=== PATIENT | male | born 1995 | race African-American/Black ===

== ENCOUNTER 2021-07-31 01:41 | Emergency (ER) | payer OTHER ==
[2021-07-31 02:20] VITALS: RESP 18
[2021-07-31] MEDS ORDERED: cefTRIAXone 250 MG VIAL IM STA (02:54)
[2021-07-31] MEDS ORDERED: AZITHROMYCIN 500 MG TAB PO STA (02:54)
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
[2021-07-31 03:50] LABS: Appearance,Urine Clear (Clear); Bilirubin,Urine Negative (Negative); Blood,Urine Negative (Negative); Color,Urine Yellow; Glucose,Urine (UA) Negative (Negative); Ketones,Urine Negative (Negative); Leukocyte Esterase,Urine Negative (Negative); Nitrite,Urine Negative (Negative); Protein,Urine Negative (Negative); Specific Gravity,Urine 1.023 (1.001-1.035); Urobilinogen,Urine <2.0 mg/dL (<2.0)
[2021-07-31 04:53] VITALS: BP 115/73; PULSE 79; TEMP 98
[2021-08-03 13:07] LABS: C. trachomatis,PCR Negative (Neg,Equiv); Chlamydia trachomatis Source Urine; N. gonorrhoeae,PCR Negative (Neg,Equiv); Neisseria Source Urine
== END 2021-07-31 04:21 | disposition home or self-care (01) ==
LOC: EC 01:41
DX: N34.2 Other urethritis (principal); J45.909 Unspecified asthma, uncomplicated; F41.9 Anxiety disorder, unspecified; F43.12 Post-traumatic stress disorder, chronic; F17.200 Nicotine dependence, unspecified, uncomplicated; F12.90 Cannabis use, unspecified, uncomplicated
CPT/HCPCS: 99283; 96372; 81003; 87491; 87591; J0696